=== PATIENT | male | born 1960 | race Caucasian/White ===

== ENCOUNTER 2025-06-11 14:47 | Emergency (ER) | payer OTHER, SELFPAY ==
[2025-06-11 14:48] VITALS: BP 162/100
[2025-06-11] MEDS: DUONEB 3 ML INH (18:05)
[2025-06-11] MEDS: DECADRON 10 MG PO (18:06)
--- NOTE | 2025-06-11 18:50 | ED.GENMED ---
History of Present Illness
General
Chief Complaint: Breathing Problem
Source: patient
Exam Limitations: none
Time Seen by Provider: 06/11/25 17:41
Nursing documentation reviewed up to this point in time: agreed with
History of Present Illness
History of Present Illness:
64-year-old male presenting to the emergency department today with concerns of wheezing over the past few days worsening today. Tried using rescue inhaler without relief. Denies any fevers chest pain
Review of Systems
Review of Systems
Allergies reviewed?: Yes
All Other Systems: ROS reviewed and negative except as documented in HPI and ROS
Phy Exam
Physical Exam
Physical Exam:
GENERAL: Alert , in no apparent distress
EYE: pupils equal and reactive
NECK: Supple, no significant adenopathy.
ENT: o/p clr, mmm.
CARDIAC: Regular rate and rhythm .
LUNGS: Expiratory wheeze diffusely
ABDOMEN: Soft, without focal tenderness, no r/g, no cvat
NEUROLOGICAL: Alert and oriented, no focal neuro deficits
SKIN: Warm and dry, skin intact.
MUSCULOSKELETAL: No edema, well perfused.
PSYCH: Normal and appropriate interaction.
Scores
Heart Failure Risk
Heart Failure Risk Score: Not Applicable
Course
Orders/Labs/Results
Orders:
Orders
06/11/25 17:47
Dexamethasone [Decadron] 10 mg PO NOW STA
Ipratropium/Albuterol Sulfate [Duoneb] 3 ml INH R NOW ONE
Vital Signs
Initial and Last Documented VS:
Initial Vital Signs
Temp Pulse Resp BP Pulse Ox
98.3 F 78 20 162/100 95
06/11/25 14:48 06/11/25 14:48 06/11/25 14:48 06/11/25 14:48 06/11/25 14:48
Last Documented Vital Signs
Temp Pulse Resp BP Pulse Ox
98.3 F 78 20 162/100 95
06/11/25 14:48 06/11/25 14:48 06/11/25 14:48 06/11/25 14:48 06/11/25 14:48
MDM/Problems Addressed
MDM/Problems Addressed:
64-year-old male presenting to the emergency department today with concerns of wheezing over the past few days. Worsening over the past 24 hours. On arrival vital signs are normal pulse ox in the mid 90s patient does have expiratory wheeze. Was
started on steroid and given DuoNeb with significant improvement of symptoms. Patient stable for outpatient management. Return precautions given.
*Pulse Oximetry
SaO2: 95
Oxygen Mode of Delivery: Room air
Patient hypoxic: no (95)
*Critical Care Note
Total Time (30-74mins, 75-104mins- exclusive of procedures): Not Applicable
ED Attending Note
-
Portions of this chart may have been created with voice recognition software.� Occasional wrong word or��sound alike� substitutions may have occurred due to the inherent limitations of voice recognition software.
Discharge Plan
Departure
Patient Disposition: Home (Routine Discharge)
Date of Disposition: 06/11/25
Time of Disposition: 18:54
Patient with high blood pressure during this ER visit?: No
Condition: Good
Covid-19: Not Applicable
Discharge Problem:
Asthma exacerbation
Instructions: Asthma, Adult (DC)
Prescriptions:
New
prednisone 50 mg tablet
50 mg PO DAILY 4 Days Qty: 4 0RF
Activity Restrictions/Additional Instructions:
You came to the emergency department today with concerns of wheezing. Please take the prescribed steroid as well as your inhalers. Return for any worsening, new or concerning symptoms.
Interventions
Interventions:
*Risk Screen - Suicide Last Done: 06/11/25 14:48
Discharge Date and Time
Print Language: [facility] [place]
== END 2025-06-11 19:09 | disposition home or self-care (01) ==
LOC: EMR 14:47
PROVIDERS: EMERGENCY PHYSICIAN Emergency Medicine; FAMILY PHYSICIAN Family Medicine
DX: J45.901 Unspecified asthma with (acute) exacerbation (principal)
CPT/HCPCS: 99283; 94640